=== PATIENT | female | born 1965 | race Caucasian/White ===

== ENCOUNTER 2023-11-10 14:23 | Outpatient (CLI) | payer OTHER, SELFPAY ==
[2023-11-10 14:47] LABS: Basophils Absolute Auto 0.1 K/mm3 (0.0-0.1); Basophils Percent Auto 1.1 % (0.2-1.2); Eosinophils Absolute Auto 0.2 K/mm3 (0-0.3); Eosinophils Percent Auto 1.9 % (0-4.4); Hemoglobin 13.1 g/dL (12.0-15.0); Immature Granulocyte Absolute 0.03 K/mm3 (0.00-0.031); Immature Granulocyte Percent A 0.3 % (0-0.5); Lymphocytes Percent Auto 13.7 % (18.3-44.2); Mean Corpuscular HGB Conc 32.8 g/dl (32-36); Mean Corpuscular Hemoglobin 31.6 pg (26-34); Mean Corpuscular Volume 96.4 fl (80-100); Mean Platelet Volume 9.5 fl (7.4-10.4); Monocytes Absolute Auto 0.8 K/mm3 (0.1-0.6); Monocytes Percent Auto 8.3 % (2.6-8.5); Neutrophils Absolute Auto 7.1 K/mm3 (1.3-6.7); Neutrophils Percent Auto 74.7 % (45.5-73.1); Platelet Count Result 293 k/mm3 (150-375); Red Blood Count 4.15 M/mm3 (4.2-5.4); Red Cell Distribution Width 11.8 % (11.5-14.5); White Blood Count 9.5 K/mm3 (4.5-10.0)
[2023-11-10 14:52] LABS: Blood Urea Nitrogen 17 mg/dL (8-26); Carbon Dioxide 29 mmol/L (22-30); Chloride 99 mmol/L (98-109); Estimated Glomerular Filt Rate > 60; Glucose 104 mg/dL (70-105); Ionized Calcium (POC) 1.26 mmol/L (1.11-1.31); Potassium 4.6 mmol/L (3.5-4.9); Sodium 138 mmol/L (138-146)
[2023-11-10 16:54] LABS: Alanine Aminotransferase 39 U/L (6-35); Albumin Level 4.5 g/dL (3.5-5.1); Alkaline Phosphatase 81 U/L (38-126); Anion Gap 5 mmol/L (4-12); Aspartate Amino Transferase 35 U/L (14-36); Bilirubin,Total 0.8 mg/dL (0.2-1.3); Blood Urea Nitrogen 17 mg/dL (7-17); Carbon Dioxide 30 mmol/L (22-30); Chloride 102 mmol/L (98-107); Estimated Glomerular Filt Rate > 60; Glucose 104 mg/dL (65-110); Potassium 4.6 mmol/L (3.4-5.0); Sodium 137 mmol/L (137-145)
== END 2023-11-10 14:24 | disposition home or self-care (01) ==
LOC: ANHLAB 14:25
PROVIDERS: Visit Provider Internal Medicine Hematology & Oncology
DX: D47.2 Monoclonal gammopathy (principal)
CPT/HCPCS: 36415; 80047; 80053; 85025